=== PATIENT | female | born 1945 | race Caucasian/White ===

== ENCOUNTER → 2016-08-04 | Outpatient (CLI) | payer MEDICARE, BC ==
[~2016-08-04] MED LIST: 1-ME1LIQ OR; ATOR40TA49 PO; DRIS8000 PO; ESTR0.752 PO; HYDR-3533 PO; IBUP800 PO; LANTUS2P SC; LOSARTIN/HCTZ PO; METF850 PO
[2016-08-04 09:03] LABS: MICRO ALBUMIN RANDOM URINE RAW 19.5 MG/L (0.0-30.0)
[2016-08-04 09:14] LABS: ANION GAP 10 MEQ/L (5-15); BICARBONATE 27.4 MEQ/L (21.0-32.0); BLOOD UREA NITROGEN 19 MG/DL (7-18); CHLORIDE 106 MEQ/L (98-107); GLOMERULAR FILTRATION RATE 61 ML/MIN (>89); GLUCOSE,FASTING 106 MG/DL (74-99); HDL CHOLESTEROL 65.5 MG/DL (40.0-60.0); LDL CHOLESTEROL 29 MG/DL (0-99); POTASSIUM 3.4 MEQ/L (3.5-5.1); SODIUM (NA) 143 MEQ/L (136-145)
[2016-08-04 10:59] LABS: HEMOGLOBIN A1a 0.9 %; HEMOGLOBIN A1b 1.2 %; HEMOGLOBIN Ao 83.2 %; HEMOGLOBIN F 1.1 %; HEMOGLOBIN P3 4.4 %
== END ==
LOC: CLAB 08:13
DX: E11.65 Type 2 diabetes mellitus with hyperglycemia (principal)
CPT/HCPCS: 36415; 80048; 80061; 82043; 83036